=== PATIENT | female | born 1990 | race Hispanic/Latino ===

== ENCOUNTER 2017-01-25 00:02 | Emergency (ER) | payer SELFPAY ==
[2017-01-25 00:15] VITALS: BP 129/78; PULSE 88; RESP 17; TEMP 99.3; O2SAT 99
--- NOTE | 2017-01-25 00:42 | C.PDOC ---
History Of Present Illness 26 year old female who presents to the ER with a complaint of redness to the bilateral legs after [place] the park. Patient states she missed the cut off time for the intermediate and decided to come get "checked out". Denies leg pain, calf pain, fever, or trauma. Time Seen by Provider: 01/25/17 00:23 Chief Complaint (Nursing): Abnormal Skin Integrity History Per: Patient History/Exam Limitations: no limitations Onset/Duration Of Symptoms: Hrs Current Symptoms Are (Timing): Still Present Location Of Injury: Right: Leg, Left: Leg, Perineum Quality Of Symptoms: Other (Redness) Recent travel outside of the [place]: No Past Medical History Reviewed: Historical Data, Nursing Documentation, Vital Signs Vital Signs: Last Vital Signs Temp 99.3 F 01/25/17 00:12 Pulse 88 01/25/17 00:12 Resp 17 01/25/17 00:12 BP 129/78 01/25/17 00:12 Pulse Ox 99 01/25/17 03:51 - Medical History PMH: Asthma Surgical History: No Surg Hx Family History: States: Unknown Family Hx - Social History Hx Alcohol Use: No Hx Substance Use: Yes - Immunization History Hx Tetanus Toxoid Vaccination: No Hx Influenza Vaccination: No Hx Pneumococcal Vaccination: No Review Of Systems Constitutional: Negative for: Fever, Chills Gastrointestinal: Negative for: Nausea, Vomiting, Diarrhea Skin: Positive for: Other (Redness) Physical Exam - Physical Exam Appears: Non-toxic, No Acute Distress Skin: Warm, Dry, No Rash, Other (Below pant line, well demarcated area of erythema to bilateral legs, no rash, swelling or blisters.) Head: Atraumatic, Normacephalic Eye(s): bilateral: Normal Inspection Oral Mucosa: Moist Throat: Normal, No Other (Swelling) Neck: Normal, Supple Chest: Symmetrical Cardiovascular: Rhythm Regular Respiratory: Normal Breath Sounds, No Rales, No Rhonchi, No Wheezing Gastrointestinal/Abdominal: Soft, No Tenderness Extremity: Normal ROM (x4), No Tenderness, No Calf Tenderness, No Swelling Extremity: Bilateral: Atraumatic Pulses: Left Dorsalis Pedis: Normal, Right Dorsalis Pedis: Normal Neurological/Psych: Oriented x3, Normal Speech, Normal Cognition, Normal Motor, Normal Sensation Gait: Steady ED Course And Treatment O2 Sat by Pulse Oximetry: 99 (Room air) Pulse Ox Interpretation: Normal Progress Note: Patient is resting comfortably, and is in no acute distress. Patient was instructed to elevate legs, NSAIDS and follow up with PMD in 1-2 days for further evaluation. Disposition Counseled Patient/Family Regarding: Diagnosis, Need For Followup - Disposition Referrals: [facility] [Outside] Disposition: HOME/ ROUTINE Disposition Time: 00:41 Condition: STABLE Additional Instructions: Elevate leg Follow up in clinic Tylenol or motrin for fever Return to ER if worse Instructions: Sunburn (ED) Forms: [employer] ([place]) - Clinical Impression Clinical Impression: Sunburn of first degree - Scribe Statement The provider has reviewed the documentation as recorded by the Scribe Clinton Chavez All medical record entries made by the Scribe were at my direction and personally dictated by me. I have reviewed the chart and agree that the record accurately reflects my personal performance of the history, physical exam, medical decision making, and the department course for this patient. I have also personally directed, reviewed, and agree with the discharge instructions and disposition.
== END 2017-01-25 00:47 | disposition home or self-care (01) ==
LOC: C.ER 00:02 → SUPCPDRO 00:02 → C.ER 00:47
DX: L55.0 Sunburn of first degree (principal)